=== PATIENT | female | born 1935 | race Caucasian/White ===

== ENCOUNTER 2022-11-05 08:52 | Emergency (ER) | payer MEDICARE, SELFPAY ==
[2022-11-05 09:01] VITALS: BP 163/66; PULSE 95; RESP 18; TEMP 36.3; O2SAT 98
--- NOTE | 2022-11-05 09:15 | DI.US_ITS ---
Exam(s) US ABDOMEN LIMITED EXAM: US ABDOMEN LIMITED CLINICAL HISTORY: RUQ abd Pain, Eval Gallbladder TECHNIQUE: Ultrasound abdomen performed using standard protocol. COMPARISON: No exams were available for comparison FINDINGS: PANCREAS: Normal where visualized. LIVER: Normal. Hepatopedal flow in the Portal Vein. The liver measures in 16.2 cm length. GALLBLADDER: No evidence of cholelithiasis. No evidence of wall thickening. No pericholecystic fluid identified. There is a 2 mm echogenic focus along the wall of the gallbladder which is not mobile and likely reflects a small gallbladder polyp. BILIARY SYSTEM: Common bile duct measures < 7 mm. No intrahepatic biliary ductal dilation. COLES'S SIGN: Negative. RIGHT KIDNEY: Kidney is normal in size. No evidence of renal calculi. There is mild dilatation of th e right renal collecting system. No renal mass or cyst identified. ASCITES: None seen. ABDOMINAL AORTA AND IVC: Visualized portions normal caliber. IMPRESSION: 1. Mild right hydronephrosis. No nephrolithiasis is seen. 2. 2 mm gallbladder polyp. No evidence of cholelithiasis or biliary ductal dilatation. DATA REPOSITORY:
--- NOTE | 2022-11-05 09:15 | DI.RAD_ITS ---
Exam(s) XR CHEST 2V PA LATERAL EXAM: XR CHEST 2V PA LATERAL CLINICAL HISTORY: Right side pain TECHNIQUE: 2D digital imaging was performed of the chest. Two images were obtained. PA and lateral views were obtained. COMPARISON: No exams were available for comparison FINDINGS: MEDIASTINUM: Normal. HEART: Normal. PULMONARY VASCULATURE: Normal. LUNGS: The lungs are hyperinflated consistent with underlying COPD. There are no focal consolidating infiltrates. PLEURAL SPACE: No pleural effusion or pneumothorax. BONE:Within normal limits for the patient's age. There is a mild pectus excavatum deformity. OTHER FINDINGS:Normal. IMPRESSION: No acute pulmonary findings. DATA REPOSITORY: RADIATION DOSE DELIVERED:
--- NOTE | 2022-11-05 09:19 | ED.GENADUL_ITS ---
Discharge Plan Disposition Patient Disposition: Home Condition: Stable Discharge Details Clinical Impression: Hematuria, Hydronephrosis of right kidney Primary Care Provider: Hanna Rincon ED Provider: Carole Powell Discharge Instructions Instructions: Hematuria (ED) Additional Instructions: The US shows some fluid in your kidney and your urine shows some blood in it. Sometimes this can indicate a kidney stone. No evidence of gallbladder. Follow up with primary care provider in 3-5 days. Return to ED sooner if any worsening fever, pain, nausea vomiting or concerns. Increase oral fluids. Referrals: Dalton Howell MD [ [facility] STAFF PHYSICIAN] - 1 week Hanna Rincon [Primary Care Provider] - 3 days Medical Decision Making 87-year-old female presents to the ER with chief complaint of right upper quadrant and right chest pain for last 2 to 3 months. She denies any fever chills nausea vomiting diarrhea cough. She does report some intermittent dyspnea. She denies any past medical history. She is only taking natural medications and vitamins. She does see a combination machine tool setter. She was recently taken off some oral hormone replacement medications. CBC, CMP lipase urinalysis ultrasound of abdomen limited and chest x-ray ordered. Labs are unremarkable, ultrasound below. Discussed radiology with patient and the patient hematuria. This text was generated using [employer] dictation system, please disregard any oddities of phrase or misspellings. Patient given a urology follow up. Imaging Data Radiologic Study: Imaging: Ultrasound Radiologist's impression: EXAM:? US ABDOMEN LIMITED CLINICAL HISTORY:? RUQ abd Pain, Eval Gallbladder TECHNIQUE:? Ultrasound abdomen performed using standard protocol. COMPARISON:? No exams were available for comparison FINDINGS: PANCREAS: Normal where visualized. LIVER: Normal. Hepatopedal flow in the Portal Vein. The liver measures in 16.2 cm length. GALLBLADDER: No evidence of cholelithiasis. No evidence of wall thickening. No pericholecystic fluid identified. There is a 2 mm echogenic focus along the wall of the gallbladder which is not mobile and likely reflects a small gallbladder polyp. BILIARY SYSTEM: Common bile duct measures < 7 mm. No intrahepatic biliary ductal dilation. COLES'S SIGN: Negative. RIGHT KIDNEY: Kidney is normal in size.? No evidence of renal calculi. There is mild dilatation of the right renal collecting system.? No renal mass or cyst identified. ASCITES: None seen. ABDOMINAL AORTA AND IVC: Visualized portions normal caliber. IMPRESSION: 1. Mild right hydronephrosis.? No nephrolithiasis is seen. 2. 2 mm gallbladder polyp.? No evidence of cholelithiasis or biliary ductal dilatation.? Lab Data Lab results reviewed: Yes I reviewed the patient's lab results. Labs: Laboratory Tests Range/Units 11/05/22 11/05/22 11/05/22 09:30 09:30 10:45 WBC (4.4-10.8) 10^3/uL 3.81 L RBC (3.93-5.22) 10^6/uL 4.46 Hgb (11.2-15.7) g/dL 13.6 Hct (36.0-46.0) % 40.4 MCV (80-95) fL 91 MCH (27.0-33.0) pg 30.5 MCHC (32.0-36.0) % 33.7 RDW (11.7-14.6) % 12.5 Plt Count (130-400) 10^3/uL 284 MPV (8.0-11.0) fL 10.2 Immature Gran % 0.3 Neutrophils % 69.0 Lymphocytes % 19.2 Monocytes % 9.7 Eosinophils % 1.3 Basophils % 0.5 Nucleated RBC % (0.0-0.3) % 0.0 Absolute Neutrophils (1.2-6.7) 10^3/uL 2.63 Absolute Lymphocytes (1.2-3.4) 10^3/uL 0.73 L Absolute Monocytes (0.1-0.8) 10^3/uL 0.37 Absolute Eosinophils (0.0-0.7) 10^3/uL 0.05 Absolute Basophils (0.0-0.2) 10^3/uL 0.02 Sodium (136-145) mmol/L 138 Potassium (3.5-5.1) mmol/L 4.0 Chloride (98-107) mmol/L 102 Carbon Dioxide (21.0-32.0) mmol/L 29.2 Anion Gap (3-11) mmol/L 6.8 BUN (7-18) mg/dL 15 Creatinine (0.55-1.02) mg/dL 0.8 Est GFR (CKD-EPI 2020) (mL/min/1.73m2) 71.71 Glucose (74-106) mg/dL 115 H Calcium (8.5-10.1) mg/dL 9.5 Magnesium (1.8-2.4) mg/dL 2.1 Total Bilirubin (0.2-1.0) mg/dL 0.8 AST (15-37) U/L 15 ALT (14-59) U/L 20 Alkaline Phosphatase (46-116) U/L 80 Total Protein (6.4-8.2) g/dL 8.2 Albumin (3.4-5.0) g/dL 4.0 Lipase (16-77) U/L 32 Urine Color (Yellow) Yellow Urine Clarity (Clear) Sl Cloudy Urine pH (5-8) 7.0 Ur Specific Henry (1.005-1.025) 1.020 Urine Protein (Negative) mg/dL Negative Urine Ketones (Negative) mg/dL Negative Urine Blood (Negative) Moderate H Urine Nitrite (Negative) Negative Urine Bilirubin (Negative) Negative Urine Urobilinogen (Up to 0.2) mg/dL 0.2 Ur Leukocyte Esterase (Negative) Negative Urine RBC (0-2) HPF 10-20 H Urine WBC (0-5) HPF 0-2 Ur Epithelial Cells (Negative) HPF Many Urine Crystals (Negative) HPF Negative Urine Bacteria (Negative) HPF Few Urine Casts (Negative) LPF Negative Urine Mucus (Negative) Negative Ur Culture Indicated? No/Sq. Contamination Urine Glucose (Negative) mg/dL Negative HPI General Mode of arrival: ambulatory . Date/Time Provider Initiated Documentation: 11/05/22 08:53 . Limitations to Documentation: no limitations . Information obtained by: patient, RN notes reviewed and old records reviewed . HPI Narrative: 87-year-old female presents to the ER with chief complaint of right upper quadrant and right chest pain for last 2 to 3 months. She denies any fever chills nausea vomiting diarrhea cough. She does report some intermittent dyspnea. She denies any past medical history. She is only taking natural medications and vitamins. She does see a combination machine tool setter. She was recently taken off some oral hormone replacement medications. Related Data Allergies Allergy/AdvReac Type Severity Reaction Status Date / Time No Known Allergies Allergy Unverified 11/05/22 09:07 General Stated Complaint: Abd Prob CATHY: 3 Review of Systems All systems reviewed & are unremarkable except as noted in HPI and below Gastrointestinal Gastrointestinal: Reports abdominal pain PFSH All Active Problems (Updated 11/05/22 @ 11:03 by Carole Powell NP) Hematuria (Acute) Hydronephrosis of right kidney (Acute) Social History Smoking/Tobacco Use Status: Current every day Smoking risk assessment performed?: Yes Alcohol Intake: never Drug use: Never Substance use type: crack/cocaine Do you feel safe at home: Yes Do you feel safe in your relationship?: Yes Exam Narrative Exam Narrative: Constitutional: Alert and oriented x3. Appears stated age. Normal body habitus. Head: Normocephalic, no trauma. Eyes: Pupils PERRL, Red reflex noted, EOM's intact. Eyelids symmetrical without lesions, discharge, or swelling. ENT: Bilateral TM's WNL, External ear normal to inspection, no mastoid TTP, swelling, or erythema, Nasal turbinates WNL, no nasal discharge. Normal dentition, Posterior pharynx WNL, no exudate. Chest: RRR, Normal S1, S2, distal pulses intact. Resp: Lungs clear to auscultation bilaterally, no wheezes, rales, or rhonchi. Abdomen: Soft, non-distended, Normoactive bowel sounds all 4 quads. Musculoskeletal: Normal gait, 5/5 strength to all four extremities. Skin: No suspicious rashes or lesions. Capillary refill less than 2 sec. Neurologic: Cranial nerves II-XII intact. Alert and oriented x 3. Motor: No deficits noted. Sensory: Intact bilaterally all 4 extremities. Hematologic/Lymphatic: No ecchymosis, no lymphadenopathy. Course Vital Signs Vital signs: Vital Signs Temperature 36.3 C L 11/05/22 09:01 Pulse 95 H 11/05/22 09:01 Respiratory Rate 18 11/05/22 09:01 Blood Pressure 163/66 H 11/05/22 09:01 Pulse Oximetry 98 11/05/22 09:01 Temperature 36.3 C L 11/05/22 09:01 Temperature Source Oral 11/05/22 09:01 Pulse 95 H 11/05/22 09:01 Respiratory Rate 18 11/05/22 09:01 Respiratory Effort Normal, Non-Labored 11/05/22 09:07 Blood Pressure 163/66 H 11/05/22 09:01 Blood Pressure Position Sitting 11/05/22 09:01 Pulse Oximetry 98 11/05/22 09:01 Oxygen Delivery Method Room Air 11/05/22 09:01 Oxygen Flow Rate 0 11/05/22 09:01
[2022-11-05 09:35] LABS: Abs Immature Grans 0.01 10^3/uL (0.0-0.06); Absolute Basophil Count 0.02 10^3/uL (0.0-0.2); Absolute Eosinophil Count 0.05 10^3/uL (0.0-0.7); Absolute Lymphocyte Count 0.73 10^3/uL (1.2-3.4); Absolute Monocyte Count 0.37 10^3/uL (0.1-0.8); Absolute Neutrophil Count 2.63 10^3/uL (1.2-6.7); Basophils % 0.5; Eosinophils % 1.3; HCT 40.4 % (36.0-46.0); HGB 13.6 g/dL (11.2-15.7); Immature Grans % 0.3; Lymphocytes % 19.2; MCH 30.5 pg (27.0-33.0); MCHC 33.7 % (32.0-36.0); MCV 91 fL (80-95); MPV 10.2 fL (8.0-11.0); Monocytes % 9.7; Platelet Count 284 10^3/uL (130-400); RBC 4.46 10^6/uL (3.93-5.22); RDW 12.5 % (11.7-14.6); RDW-SD 41.5 fL; WBC 3.81 10^3/uL (4.4-10.8)
[2022-11-05 09:55] LABS: ALT 20 U/L (14-59); AST 15 U/L (15-37); Alkaline Phosphatase 80 U/L (46-116); Anion Gap 6.8 mmol/L (3-11); BUN 15 mg/dL (7-18); Bilirubin, Total 0.8 mg/dL (0.2-1.0); CO2 29.2 mmol/L (21.0-32.0); CREATININE 0.8 mg/dL (0.55-1.02); Calcium 9.5 mg/dL (8.5-10.1); Chloride 102 mmol/L (98-107); Estimated GFR 71.71 (mL/min/1.73m2); Glucose 115 mg/dL (74-106); Lipase 32 U/L (16-77); Magnesium 2.1 mg/dL (1.8-2.4); Sodium 138 mmol/L (136-145); Total Protein 8.2 g/dL (6.4-8.2)
[2022-11-05 10:55] LABS: Bilirubin Negative (Negative); Blood Moderate (Negative); Clarity Sl Cloudy (Clear); Glucose Negative (Negative); Ketones Negative (Negative); Leukocyte Esterase Negative (Negative); Nitrite Negative (Negative); Urobilinogen 0.2 mg/dL (Up to 0.2)
[2022-11-05 11:01] LABS: Bacteria Few HPF (Negative); Crystals Negative HPF (Negative); Epithelial Cells Many HPF (Negative); WBC 0-2 HPF (0-5)
[2022-11-05 11:02] LABS: C & S Indicated? No/Sq. Contamination; Casts Negative LPF (Negative); Mucus Negative (Negative)
[2022-11-05 11:50] VITALS: BP 162/70; PULSE 75; RESP 20; O2SAT 98
== END 2022-11-05 11:52 | disposition home or self-care (01) ==
PROVIDERS: Emergency Provider Registered Nurse Emergency; PCP Naturopath
DX: N13.2 Hydronephrosis with renal and ureteral calculous obstruction (principal)
CPT/HCPCS: 36415; 80053; 83690; 99284; 71046; 76705; 81003; 81015; 83735; 85025

== ENCOUNTER 2023-08-06 08:47 | Emergency (ER) | payer MEDICARE, SELFPAY ==
[2023-08-06 08:55] VITALS: BP 180/69; PULSE 87; RESP 16; TEMP 36.6; O2SAT 98
--- NOTE | 2023-08-06 09:06 | ED.GENADUL_ITS ---
Discharge Plan Disposition Patient Disposition: Home Condition: Stable Discharge Details Clinical Impression: Lumbar strain Primary Care Provider: Unknown,Unknown ED Provider: Antonio Sheppard Home Meds and New Rx's Prescriptions: New methocarbamol 750 mg tablet 750 mg PO TID 7 Days Qty: 21 0RF Continued acetaminophen 325 mg capsule 650 mg PO Q6H PRN aspirin 325 mg capsule 325 mg PO Q6H calcium carbonate-vitamin D3 [Calcium 600 + D(3)] 600 mg-5 mcg (200 unit) tablet 1 tab PO DAILY magnesium 250 mg tablet 250 mg PO DAILY Discharge Instructions Instructions: Methocarbamol (By mouth), Low Back Strain (ED) Additional Instructions: You were seen in the emergency department for your likely lumbosacral muscle strain, this was a lifting injury and you have no tenderness over the vertebra themselves. You likely need to see physical therapy for help with low back strain. I have provided their office contact number, they do accept insurance. They can teach you some exercises and do some manual work to help your lumbar back and sacrum realign. Continue taking Tylenol every 6 hours, you can continue taking aspirin or take something like 1 Aleve in the morning and 1 in the evening for anti-inflammatory relief. I have sent a prescription for a skeletal muscle relaxer called methocarbamol to [facility] in [place], be careful taking this medication at 88 years old it can increase fall risks. You can alternate heat and ice to the area of pain in your back, apply [id number] Lidoderm patches to your back for 12 hours each day, perform gentle massage to the area. If you cannot follow-up with physical therapy you could try seeing a massage therapist or chiropractor. Please return to the emergency department for any urinary changes, bowel incontinence, numbness in the groin, paralysis of either leg. Referrals: [facility] [Provider Group] Medical Decision Making This dictation utilizes [id number] dictation software and may contain unedited grammatical errors. 88 y/o F presents to ED today with a chief complaint of lower back pain for the past two weeks, was lifting heavy grocery bags, continued lower back pain without radicular symptoms. Denies radiation to leg pain, urinary changes, incontinence, groin numbness. 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 Family and social history: noncontributory. Pertinent exam findings / vital signs include No midline vertebral tenderne ss/crepitus/step-offs, focal tenderness over L SI joint and lumbar paraspinal muscles, strength 5/5 in bilateral LEs, sensation intact, ambulating normally, no swelling/deformity. Differential / pathologies of concern include Sacroiliitis, Lumbar Strain, Unlikely fracture- atraumatic. Diagnostic studies of: -none Interventions of: -LidoDerm patch, methocarbomol by Rx. ED Course/Assessment/Plan: Healthy 88-year-old female presents with greater than 2 weeks of lumbar back pain after lifting heavy grocery bag, this is in the lumbar paraspinal muscles over the left SI joint, I do not suspect any traumatic or compression fracture, I discussed general treatment regimens for lumbar back pain including Tylenol and anti-inflammatories as well as Lidoderm patches, alternating heat and ice th e area and prescribed a skeletal muscle relaxer. We did discuss imaging options with the patient prefers to trial muscle relaxer for relief, I do recommend that she see physical therapy but she had financial concerns over there is a recommended she try massage therapist or chiropractor as well. I recommend strict return criteria for any urinary or bowel changes and progressing numbness in the legs. Findings not consistent with cauda equina, vertebral fracture, not consistent with sciatica denies any radiation down her legs. Disposition of Lumbar Strain. Patient verbalized understanding of the plan and return to ED criteria and engaged in shared decision making. Medical Records Medical records reviewed: Yes I reviewed the patient's medical records. HPI General Date/Time Provider Initiated Documentation: 08/06/23 08:59 . HPI Narrative: 88 year-old female presents to ED today by POV/ambulating with a chief complaint of lower back pain with onset two weeks ago from lifting heavy grocery bags. Quality described as focal lower back pain, no radiation to urinary retention, bowel incontinence, groin numbness, fever, radiation down her legs. Severity is described as [ ]/10. Palliating factors include Tylenol and ibuprofen with minimal relief. Provoking factors include lifting. Events leading up to the incident/Associated Symptoms: Patient states it should be better by now, wants to make sure she's ok with possible imaging. Patient not anticoagulated, takes no medications save for dietary supplements. Related Data Home Medications Medication Instructions Recorded Confirmed acetaminophen 325 mg capsule 650 mg PO Q6H PRN 08/06/23 08/06/23 aspirin 325 mg capsule 325 mg PO Q6H 08/06/23 08/06/23 calcium carbonate 600 mg-vitamin 1 tab PO DAILY 08/06/23 08/06/23 D3 5 mcg (200 unit) tablet (Calcium 600 + D(3)) magnesium 250 mg tablet 250 mg PO DAILY 08/06/23 08/06/23 methocarbamol 750 mg tablet 750 mg PO TID lumbar strain 7 days 08/06/23 #21 tabs Previous Rx's Medication Instructions Recorded methocarbamol 750 mg tablet 750 mg PO TID lumbar strain 7 days 08/06/23 #21 tabs Allergies Allergy/AdvReac Type Severity Reaction Status Date / Time No Known Allergies Allergy Unverified 08/06/23 08:59 General Stated Complaint: Nk/Back Pain CATHY: 4 Review of Systems All systems reviewed & are unremarkable except as noted in HPI and below PFSH All Active Problems (Updated 08/06/23 @ 09:18 by ELEN Doss) Lumbar strain (Acute) Social History Smoking/Tobacco Use Status: Current every day Smoking risk assessment performed?: Yes Alcohol Intake: never Drug use: Never Housing: house Do you feel safe at home: Yes Do you feel safe in your relationship?: Yes Additional Social history: Lives at home alone. 9 years ago. CARLOS EDUARDO RN 08/06/23 Exam Narrative Exam Narrative: GENERAL APPEARANCE: Well-nourished, non-toxic, awake and alert, atraumatic, no acute distress. SKIN: Warm, pink, dry, intact, without rashes/lesions/ulcerations. HEAD: Normocephalic, atraumatic, normal hair distribution for gender/age. EYES: Pupils PERRLA, EOMs intact without nystagmus, normal conjunctiva, no exudates on lids/lashes. ENT: Nares patent, no circumoral cyanosis, no facial swelling NECK: Supple, trachea midline, painless cervical ROM. LUNGS/CHEST: Non-labored respirations, normal A/P diameter, symmetrical expansion, no chest wall deformity HEART (CV/PV): No peripheral edema, no JVD. ABDOMEN: Soft, non-distended, no guarding. MSK: Normal ROM, no swelling/deformity to bilateral UEs or LEs, moving all extremities without weakness, no cyanosis, spine midline without tenderness, normal curvature. No midline vertebral tenderness/crepitus/step-offs, focal tenderness over L SI joint and lumbar paraspinal muscles, strength 5/5 in bilateral LEs, sensation intact, ambulating normally, no swelling/deformity NEURO: Mental Status AAOx4 - alert to person, place, time, events No facial droop, no forehead involvement. Motor: No focal weakness - strength 5/5 in bilateral UEs and LEs, proximal and distal, symmetric. Sensory: sensation intact to light touch globally. Gait normal: patient ambulated without ataxia into ED room. PSYCH: euthymic, cooperative, pleasant, appropriate speech Course Vital Signs Vital signs: Vital Signs Temperature 36.6 C 08/06/23 08:55 Pulse 87 08/06/23 08:55 Respiratory Rate 16 08/06/23 08:55 Blood Pressure 180/69 H 08/06/23 08:55 Pulse Oximetry 98 08/06/23 08:55 Temperature 36.6 C 08/06/23 08:55 Temperature Source Oral 08/06/23 08:55 Pulse 87 08/06/23 08:55 Respiratory Rate 16 08/06/23 08:55 Blood Pressure 180/69 H 08/06/23 08:55 Pulse Oximetry 98 08/06/23 08:55 Oxygen Delivery Method Room Air 08/06/23 08:55 Oxygen Flow Rate 0 08/06/23 08:55 Pain Level 0 08/06/23 09:03
[2023-08-06] MEDS: Lidocaine 5% Patch 1 PATCH TP (09:29)
== END 2023-08-06 09:33 | disposition home or self-care (01) ==
LOC: ER 09:18
PROVIDERS: Emergency Provider Physician Assistant
DX: S39.012A Strain of muscle, fascia and tendon of lower back, initial encounter (principal); F17.210 Nicotine dependence, cigarettes, uncomplicated; Z79.82 Long term (current) use of aspirin; X50.0XXA Overexertion from strenuous movement or load, initial encounter; Y93.89 Activity, other specified; Y92.512 Supermarket, store or market as the place of occurrence of the external cause
CPT/HCPCS: 99283; 99282